=== PATIENT | male | born 1955 | race Caucasian/White ===

== ENCOUNTER 2017-04-03 23:21 | Emergency (ER) | payer OTHER ==
[~2017-04-03] VITALS: Ht 175.3 cm; Wt 80.0 kg
[~2017-04-03 23:21] MED LIST: CLON-352 PO; NAPR500 PO
[2017-04-03 23:32] VITALS: BP 163/92; PULSE 80; RESP 16; TEMP 99.2; O2SAT 99
[2017-04-03] MEDS ORDERED: BUSP15TA PO (23:39)
[2017-04-03] MEDS ORDERED: AMLO5TAB2 PO (23:39)
[2017-04-03] MEDS ORDERED: DIAZEPAM 5 MG TAB PO ONE (23:45)
--- NOTE | 2017-04-03 23:58 | PD ---
HPI Chief Complaint: Alcohol/Drug Intoxication Time Seen by Provider: 23:33 Travel History International Travel<30 days: No Contact w/Intl Traveler<30days: No Traveled to known affect area: No History of Present Illness HPI Is a 61-year-old man who presents to the emergency department under a Vergara act. Law enforcement states that he was on the phone with the [place] crisis line stating that he wanted to kill himself. The girlfriend apparently reported to them that he was trying to jump out of a window department yesterday but she was able pull back and put him down to sleep. Patient states he was drinking today but denies any suicidal thoughts, denies ever temp and climb out of window , and states that he was sleeping in his bed when the police came to take him. He accuses girlfriend of fabricating the entire episode and calling the police. History Past Medical History Narrative Medical PTSD/anxiety/depression Back problems Social History Alcohol Use: Yes (SOCIALLY) Tobacco Use: Yes (1 ppd) Allergies-Medications (Allergen,Severity, Reaction): Coded Allergies: No Known Allergies (Verified , 04/30/14) Reported Meds & Prescriptions Reported Meds & Active Scripts Active Reported Buspirone (Buspirone HCl) 15 Mg Tab 15 Mg PO DAILY Amlodipine (Amlodipine Besylate) 5 Mg Tab 5 Mg PO DAILY Review of Systems Except as stated in HPI: all other systems reviewed are Neg Physical Exam Narrative GENERAL: 61-year-old man, boisterous and loud, no acute distress. SKIN: Focused skin assessment warm/dry. NECK: Trachea midline. No JVD. CARDIOVASCULAR: Regular rate and rhythm. No murmur appreciated. RESPIRATORY: No accessory muscle use. Clear to auscultation. Breath sounds equal bilaterally. GASTROINTESTINAL: Abdomen soft, non-tender, nondistended. Hepatic and splenic margins not palpable. MUSCULOSKELETAL: No obvious deformities. No clubbing. No cyanosis. No edema. NEUROLOGICAL: Awake and alert. No obvious cranial nerve deficits. Motor grossly within normal limits. Normal speech. PSYCHIATRIC: Boisterous and loud, labile mood. Data Data Last Documented VS Vital Signs Date Time Temp Pulse Resp B/P Pulse Ox O2 Delivery O2 Flow Rate FiO2 04/03/17 23:32 99.2 80 16 163/92 99 Room Air Orders Complete Blood Count With Diff (04/03/17 23:38) Comprehensive Metabolic Panel (04/03/17 23:38) Psych Screen (04/03/17 23:38) Drug Screen, Random Urine (04/03/17 23:38) Alcohol (Ethanol) (04/03/17 23:38) Diazepam (Valium) (04/03/17 23:45) MDM Medical Decision Making Medical Screen Exam Complete: Yes Emergency Medical Condition: Yes Differential Diagnosis Intoxication, depression, adjustment reaction, other Narrative Course Medical decision making Is a 61-year-old man who presents to the emergency department with intoxication and reported suicidality. He has no somatic complaints. Denies SI. He is medically clear for psychiatric evaluation. Temo Bowles MD Apr 03, 2017 23:58
[2017-04-04 00:15] LABS: AMPHETAMINE, URINE NEG (NEG); AUTOMATED NEUTROPHIL # 2.7 TH/MM3 (1.8-7.7); BARBITURATES, URINE NEG (NEG); BASOPHIL # 0.2 TH/MM3 (0-0.2); BASOPHIL % 2.4 % (0.0-2.0); COCAINE, URINE NEG (NEG); EOSINOPHIL # 0.2 TH/MM3 (0-0.4); EOSINOPHIL % 2.4 % (0.0-4.0); HEMATOCRIT 52.9 % (39.0-51.0); HEMO FLAGS DIFF FINAL; LYMPH % 50.3 % (9.0-44.0); LYMPHOCYTE # 3.7 TH/MM3 (1.0-4.8); MEAN CELL VOLUME 103.9 FL (80.0-100.0); MEAN CORPUSCULAR HGB CONC 34.6 % (32.0-36.0); MONO % 8.2 % (0.0-8.0); NEUT % 36.7 % (16.0-70.0); PLATELET COUNT 161 TH/MM3 (150-450); RED BLOOD COUNT 5.09 MIL/MM3 (4.50-5.90); RED CELL DISTRIBUTION WIDTH 12.2 % (11.6-17.2); WHITE BLOOD COUNT 7.3 TH/MM3 (4.0-11.0)
[2017-04-04 00:22] LABS: ANION GAP 10 MEQ/L (5-15); AST (GOT) 72 U/L (15-37); BICARBONATE 21.1 MEQ/L (21.0-32.0); BLOOD UREA NITROGEN 10 MG/DL (7-18); CHLORIDE 106 MEQ/L (98-107); GLOMERULAR FILTRATION RATE 67 ML/MIN (>89); POTASSIUM 3.4 MEQ/L (3.5-5.1); SODIUM (NA) 137 MEQ/L (136-145)
[2017-04-04 00:23] LABS: ALT (GPT) 77 U/L (12-78)
[2017-04-04 00:50] LABS: ALKALINE PHOSPHATASE 105 U/L (45-117); TOTAL BILIRUBIN ADULT 0.4 MG/DL (0.2-1.0)
[2017-04-04] MEDS ORDERED: NICOTINE 21 MG/24 HR PATCH T-DERMAL ONE (01:45)
[2017-04-04] MEDS ORDERED: FLUMAZENIL 0.5 MG/5 ML VIAL IV PUSH PRN (03:30)
[2017-04-04] MEDS ORDERED: LORazepam 2 MG/ML VIAL IV PUSH PRN ×4 (03:30)
[2017-04-04] MEDS ORDERED: LORazepam 2 MG TAB PO PRN (03:30)
[2017-04-04] MEDS ORDERED: LORazepam 1 MG TAB PO PRN (03:30)
[2017-04-04 06:02] VITALS: BP 129/72; PULSE 81; RESP 18
--- NOTE | 2017-04-04 13:31 | PD ---
History of Present Illness Chief Complaint: Alcohol/Drug Intoxication Time Seen by Provider: 12:30 Travel History International Travel<30 Days: No Contact w/Intl Traveler<30days: No Known affected area: No Legal Status Legal Status: Vergara Act Vergara Act Signed By: Gerard Hayden History of Present Illness: History of Present Illness HPI Patient is a 61-year-old man with history of alcohol dependence who presents to the emergency department under a Vergara act initiated by [facility]. The report alleges that he was on the phone with the [place] crisis line stating that he wanted to kill himself. The girlfriend apparently reported to them that he was trying to jump out of a window apartment yesterday. Patient states he was drinking today but denies any suicidal thoughts, denies ever temp and climb out of window, and states that he was sleeping in his bed when the police came to take him. The patient was monitored in [facility] until he was clinically sober. His BAl on presentation to ED was 301 and positive cannabinoid . EMR is reviewed. He was previously placed under a BA in 2010 while intoxicated as well. This morning he is clinically sober. He is calm, engaging and cooperative. Hi speech is clear and he is not demonstrating any signs of withdrawal. There is no indication of psychosis or elizabeth. Mood is euthymic. He denies any suicidal or homicidal ideation. He reports that he was indeed frustrated with his girlfriend and that they had been arguing as well. he also admits that he was drunk and " frankly I don't remember saying I was going to hurt myself". He does admit to saying " I might as well throw myself off the balcony". He does deny that he meant it as a suicidal plan. He staes " My internal knowledge that I know suicide is wrong will prevent me from doing something like that". In terms of psychiatric treatment he reports he sees Dr. Carpenter at the [place] q three months and that he is medication compliant. He denies any previous psychiatric admission and denies any previous suicidal attempts. In terms of substance use he reports a hx of alcohol dependence with 16 years of sobriety. He has relapsed 3 months ago and is drinking approximately 2 quarts of beer per day. [facility] Past Medical History ADHD: Yes Anxiety: Yes Depression: Yes Diabetes: No Diminished Hearing: No Hepatitis: Yes (C) Hypertension: Yes Kidney Stones: Yes Immunizations Current: Yes Past Surgical History Genitourinary Surgery: Yes (kidney stones removed 1995) Other Surgery: Yes (KIDNEY STONE REMOVAL) Psychiatric History Psychiatric History Hx Psychiatric Treatment: [facility] [place]. History of Inpatient Treatment: No Guns or firearms in home: No Social History Single, never . No children. Lives with his girlfriend of 7 years. 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 Hx Alcohol Use: Yes (SOCIALLY) Hx Tobacco Use: Yes (1 ppd) Substance Use Type: Alcohol, Marijuana Hx of Substance Use Treatment: No Family Psychiatric History Negative Allergies-Medications (Allergen,Severity, Reaction): Coded Allergies: No Known Allergies (Verified , 04/30/14) Reported Meds & Prescriptions Reported Meds & Active Scripts Active Reported Buspirone (Buspirone HCl) 15 Mg Tab 15 Mg PO DAILY Amlodipine (Amlodipine Besylate) 5 Mg Tab 5 Mg PO DAILY Review of Systems Except as stated in HPI: all other systems reviewed are Neg Exam Alert: Yes [place]: Person (ox4) Mood: Calm Affect: Appropriate Speech: Clear, Logical Eye Contact: Normal Memory Intact: Comment (no impairment) Hallucinations: Other (negative) Delusions: No Suicidal: Ideation (deneis any) Homicidal: Ideation (deneis any) Insight/Judgement Fair. Not impaired. [facility] Medical Decision Making Medical Record Reviewed: Yes Assessment/Plan Patient is a 61-year-old man with history of alcohol dependence who presents to the emergency department under a Vergara act initiated by [facility]. The report alleges that he was on the phone with the [place] crisis line stating that he wanted to kill himself. The call happened in context of alcohol intoxication as well as being involved in an argument with his girlfriend.The patient ws monitored until he sobered up clinically and he presented no suicidality. He continues to deny any suicidal intent and at this time does not meet criteria for inpatient treatment. He does not meet criteria for BA. I have counseled him regarding cont use of alcohol, provided support as well. The BA will be lifted. He will follow up with outpatient treatment provider. Orders Complete Blood Count With Diff (04/03/17 23:38) Comprehensive Metabolic Panel (04/03/17 23:38) Psych Screen (04/03/17 23:38) Drug Screen, Random Urine (04/03/17 23:38) Alcohol (Ethanol) (04/03/17 23:38) Diazepam (Valium) (04/03/17 23:45) Nicotine 21 Mg Patch.24 Hr (Habitrol 21 (04/04/17 01:45) Alcohol Withdrawal Asmt-Ciwa ONCE (04/04/17 03:22) Flumazenil Inj (Romazicon Inj) (04/04/17 03:30) Lorazepam Inj (Ativan Inj) (04/04/17 03:30) Lorazepam (Ativan) (04/04/17 03:30) Lorazepam Inj (Ativan Inj) (04/04/17 03:30) Lorazepam Inj (Ativan Inj) (04/04/17 03:30) Lorazepam Inj (Ativan Inj) (04/04/17 03:30) Lorazepam (Ativan) (04/04/17 03:30) Diet Regular Basic (04/04/17 Breakfast) Diet Regular Basic (04/04/17 Lunch) Results Vital Signs Date Time Temp Pulse Resp B/P Pulse Ox O2 Delivery O2 Flow Rate FiO2 04/04/17 06:02 81 18 129/72 04/03/17 23:32 99.2 80 16 163/92 99 Room Air Laboratory Tests Test 04/03/17 23:42 White Blood Count 7.3 Red Blood Count 5.09 Hemoglobin 18.3 Hematocrit 52.9 Mean Corpuscular Volume 103.9 Mean Corpuscular Hemoglobin 36.0 Mean Corpuscular Hemoglobin 34.6 Concent Red Cell Distribution Width 12.2 Platelet Count 161 Mean Platelet Volume 8.3 Neutrophils (%) (Auto) 36.7 Lymphocytes (%) (Auto) 50.3 Monocytes (%) (Auto) 8.2 Eosinophils (%) (Auto) 2.4 Basophils (%) (Auto) 2.4 Neutrophils # (Auto) 2.7 Lymphocytes # (Auto) 3.7 Monocytes # (Auto) 0.6 Eosinophils # (Auto) 0.2 Basophils # (Auto) 0.2 CBC Comment DIFF FINAL Differential Comment Sodium Level 137 Potassium Level 3.4 Chloride Level 106 Carbon Dioxide Level 21.1 Anion Gap 10 Blood Urea Nitrogen 10 Creatinine 1.12 Estimat Glomerular Filtration 67 Rate Random Glucose 122 Calcium Level 8.9 Total Bilirubin 0.4 Aspartate Amino Transf 72 (AST/SGOT) Alanine Aminotransferase 77 (ALT/SGPT) Alkaline Phosphatase 105 Total Protein 9.1 Albumin 3.7 Urine Opiates Screen NEG Urine Barbiturates Screen NEG Urine Amphetamines Screen NEG Urine Benzodiazepines Screen NEG Urine Cocaine Screen NEG Urine Cannabinoids Screen POS Ethyl Alcohol Level 301 Diagnosis Primary Impression: Alcohol intoxication Additional Impression: Alcohol dependence with intoxication Psychiatrically Cleared: Yes Departure Forms: Tests/Procedures Patient Instructions: General Instructions, Abuse of Alcohol (ED) Additional Instructions: IF YOU DECIDE TO TO SEEK HELP WITH QUITTING DRINKING, MAY GO TO [facility] Med/ Other Pt Specific Info: No Change to Meds Disposition: 01 DISCHARGE HOME Condition: Stable Problem Qualifiers Additional Impression: Alcohol dependence with intoxication Qualified Code: F10.220 - Alcohol dependence with uncomplicated intoxication Eveline Cook Apr 04, 2017 13:31
== END 2017-04-04 14:33 | disposition home or self-care (01) ==
LOC: NEPD 23:21 → NEPJ 04-04 14:33
DX: F10.229 Alcohol dependence with intoxication, unspecified (principal); Y90.8 Blood alcohol level of 240 mg/100 ml or more; Z79.899 Other long term (current) drug therapy
CPT/HCPCS: 80053; 80307; 85025; 99284